=== PATIENT | female | born 1960 | race Hispanic/Latino ===

== ENCOUNTER → 2023-08-01 | Outpatient (REF) | payer MEDICARE | LOC: RAD 09:35 | PROVIDERS: ATTEND Student in an Organized Health Care Education/Training Program | DX: M17.12 Unilateral primary osteoarthritis, left knee (principal) ==

== ENCOUNTER → 2024-04-10 | Day surgery (SDC) | payer MEDICARE ==
[2024-04-07 09:43] LABS: BASOPHILS # (AUTO) 0.1 (0.0-0.1); BASOPHILS % 0.9 % (0.0-1.0); EOSINOPHILS # (AUTO) 0.1 (0.0-0.4); EOSINOPHILS % 1.3 % (0.0-6.0); HEMATOCRIT 41.6 % (34.2-44.1); HEMOGLOBIN 13.7 g/dL (12.0-16.0); LYMPHOCYTES % 56.2 % (18.0-39.1); MEAN CORPUSCULAR HEMOGLOBIN 31.6 pg (28-32); MEAN CORPUSCULAR HGB CONC 32.9 g/dL (31-35); MEAN CORPUSCULAR VOLUME 96.1 fL (81-99); MONOCYTES # (AUTO) 0.4 (0.2-0.8); MONOCYTES % 5.3 % (4.4-11.3); NEUTROPHILS # (AUTO) 2.6 (2.1-6.9); NEUTROPHILS % 36.2 % (38.7-80.0); PLATELET COUNT 274 x10e3/uL (140-360); RED BLOOD COUNT 4.33 x10e6/uL (3.6-5.1); RED CELL DISTRIBUTION WIDTH 13.5 % (11.7-14.4); WHITE BLOOD COUNT 7.03 x10e3/uL (4.8-10.8)
[~2024-04-10] MED LIST: DEXMEDETOMIDINE HCL 200 MCG/2 ML VIAL ONE; EPHEDRINE SULFATE INJ 50 MG/ML VIAL ONE; FENTANYL CITRATE/PF 100MCG/2 ML INJ ONE; LIDOCAINE HCL 2% LOCAL INJ 5 ML SDV VIAL INJ ONE; PROPOFOL IV EMULSION 10 MG/ML 50 ML VIAL IV ONE; [UNRECOGNIZED DRUG - OTHER]
[2024-04-10] MEDS: LACTATED RINGER'S 1,000 ML ONE (06:31)
[2024-04-10 09:18] VITALS: TEMP 97
[2024-04-10 09:45] VITALS: BP 114/73; PULSE 71; RESP 16; O2SAT 97
== END | disposition home or self-care (01) ==
LOC: OR 05:56
PROVIDERS: ATTEND Internal Medicine Gastroenterology
DX: K22.2 Esophageal obstruction (principal); D12.5 Benign neoplasm of sigmoid colon; D12.3 Benign neoplasm of transverse colon; D12.0 Benign neoplasm of cecum; D12.2 Benign neoplasm of ascending colon; D12.4 Benign neoplasm of descending colon; K62.1 Rectal polyp; K29.70 Gastritis, unspecified, without bleeding; K21.9 Gastro-esophageal reflux disease without esophagitis; K31.89 Other diseases of stomach and duodenum; K20.90 Esophagitis, unspecified without bleeding; K64.8 Other hemorrhoids; E78.5 Hyperlipidemia, unspecified; F17.200 Nicotine dependence, unspecified, uncomplicated; Z88.0 Allergy status to penicillin; Z01.810 Encounter for preprocedural cardiovascular examination; Z01.812 Encounter for preprocedural laboratory examination; Z80.0 Family history of malignant neoplasm of digestive organs
CPT/HCPCS: 36415; 43239; 43450; 45380; 45385; 85025; 93005; J2003; J2470; J2704; J3010; J7121; 45378

== ENCOUNTER → 2025-04-12 | Day surgery (SDC) | payer MEDICARE ==
[2025-04-09 09:15] LABS: BASOPHILS % 0.6 % (0.0-1.0); EOSINOPHILS % 1.1 % (0.0-6.0); LYMPHOCYTES % 48.7 % (18.0-39.1); MONOCYTES % 5.6 % (4.4-11.3); NEUTROPHILS % 43.8 % (38.7-80.0); RED CELL DISTRIBUTION WIDTH 13.5 % (11.7-14.4)
[~2025-04-12] MED LIST changes: +CRESTOR40 MG PO; -DEXMEDETOMIDINE HCL 200 MCG/2 ML VIAL ONE; +HYOSCYAMINE SULFATE 0.5 MG/ML INJ ONE; +KETAMINE 50MG/5ML SYR ONE; +MULTIPLE VITAM1 EAC2 PO; +MULTIPLE VITAMINS PO; +ONDANSETRON HCL INJ 2MG/ML 2ML 2 MG/ML VIAL ONE; -PROPOFOL IV EMULSION 10 MG/ML 50 ML VIAL IV ONE; +PROPOFOL IV EMULSION 50 ML IV ONE
[2025-04-12] MEDS: LACTATED RINGER'S 1,000 ML ONE (10:46)
[2025-04-12 12:41] VITALS: TEMP 97.3
[2025-04-12 12:55] VITALS: BP 101/50; PULSE 79; RESP 16; O2SAT 97
== END | disposition home or self-care (01) ==
LOC: OR 09:54
PROVIDERS: ATTEND Internal Medicine Gastroenterology
DX: Z09 Encounter for follow-up examination after completed treatment for conditions other than malignant neoplasm (principal); D12.2 Benign neoplasm of ascending colon; K64.8 Other hemorrhoids; K21.9 Gastro-esophageal reflux disease without esophagitis; K44.9 Diaphragmatic hernia without obstruction or gangrene; E78.5 Hyperlipidemia, unspecified; E66.9 Obesity, unspecified; Z88.0 Allergy status to penicillin; Z01.810 Encounter for preprocedural cardiovascular examination; Z01.812 Encounter for preprocedural laboratory examination; Z79.899 Other long term (current) drug therapy; Z68.30 Body mass index [BMI] 30.0-30.9, adult; Z87.891 Personal history of nicotine dependence
CPT/HCPCS: 36415; 45385; 85025; 93005; J1980; J2003; J2405; J2704; J3010; J7121; 45378